=== PATIENT | male | born 1985 | race Hispanic/Latino ===

== ENCOUNTER 2018-04-25 22:11 | Emergency (ER) | payer OTHER ==
[2018-04-25 22:18] VITALS: BP 147/84; PULSE 68; RESP 18; TEMP 98.5; O2SAT 99
--- NOTE | 2018-04-26 12:57 | ED PDOC ---
Syncope/Near Syncope/Dizziness Time Seen by Provider: 04/25/18 22:31 Chief Complaint (Nursing): Dizziness/Lightheaded History Per: Patient History/Exam Limitations: no limitations Onset/Duration Of Symptoms: Hrs Current Symptoms Are (Timing): Gone Now Fall Associated With With Symptoms: No Additional Complaint(s): Pt. is a 33 y/o Male with no PMH, works as a auto painter helper and was on a call with an overdosed victim. He was handling the drugs, bundling up for evidence, with gloves on at all times and was around the body when he felt lightheaded. He stepped out for some fresh air and felt better, returned to work however when he mentioned it to his program supervisor later he was referred to ED for evaluation b/c he had been handling drugs. Pt. reports symptoms lasted a couple minutes, no associated CP or WISDOM, improved with fresh air (and leaving the scene) and occured 3.5 hrs ago. Pt. has been feeling well with no recurrence of symptoms. Past Medical History Vital Signs: Last Vital Signs Temp 98.5 F 04/25/18 22:14 Pulse 68 04/25/18 22:14 Resp 18 04/25/18 22:14 BP 147/84 04/25/18 22:14 Pulse Ox 99 04/25/18 22:14 - Medical History PMH: No Chronic Diseases - Surgical History Surgical History: No Surg Hx - Family History Family History: States: No Known Family Hx - Allergies Allergies/Adverse Reactions: Allergies Allergy/AdvReac Type Severity Reaction Status Date / Time No Known Allergies Allergy Verified 04/25/18 22:48 Physical Exam - Reviewed Nursing Documentation Reviewed: Yes Vital Signs Reviewed: Yes - Physical Exam Appears: Positive for: Well Head Exam: Positive for: NORMAL INSPECTION Skin: Positive for: Normal Color Eye Exam: Positive for: Normal appearance Cardiovascular/Chest: Positive for: Regular Rate, Rhythm Respiratory: Positive for: Normal Breath Sounds - ECG O2 Sat by Pulse Oximetry: 99 Medical Decision Making Medical Decision Making: Pt. well appearing with no further symptoms over past 3 hrs. Pt. is requesting to return to work as he feels well. Discharge exam, ambulating with steady gait, neuro intact. Disposition - Clinical Impression Clinical Impression: Dizziness, Chemical exposure - Disposition Disposition: Routine/Home Disposition Time: 23:20 Condition: GOOD Instructions: Dizziness, Nonvertigo, (DC) Forms: [employer] (Nepalese), [facility] ED School/Work Excuse
== END 2018-04-25 23:00 | disposition home or self-care (01) ==
LOC: H.ER 22:11
DX: R42 Dizziness and giddiness (principal); Z77.098 Contact with and (suspected) exposure to other hazardous, chiefly nonmedicinal, chemicals